=== PATIENT | male | born 1965 | race Caucasian/White ===

== ENCOUNTER 2016-05-15 09:44 | Inpatient (IN) | payer MEDICARE ==
[~2016-05-15] VITALS: Ht 167.6 cm; Wt 75.5 kg
[~2016-05-15 09:44] MED LIST: DIVA500T2 PO; FLUP1TAB PO; HYDR10TA4 PO; LEVO50TA5 PO; OLAN5TAB9 PO; RIVA10TA PO; depakote; zyprexa
[2016-05-15] MEDS ORDERED: SODIUM CHLORIDE FLUSH 10ML SYR IVF ONE (10:00)
[2016-05-15] MEDS ORDERED: CEFAZOLIN 1,000 MG IM ONE (10:00)
[2016-05-15] MEDS ORDERED: SODIUM CHLORIDE 0.9% 1,000ML IVBOLUS ONE (10:00)
[2016-05-15] MEDS ORDERED: DIPH,PERTUSS(ACELL),TET VAC/PF 0.5 ML IM-VACC ONE ×2 (10:00→11:19)
[2016-05-15] MEDS ORDERED: QUETIAPINE 200 MG TABLET PO ONE (10:14)
[2016-05-15] MEDS ORDERED: RIVAROXABAN 20 MG TABLET PO ONE (10:14)
[2016-05-15 10:49] LABS: ASPARTATE AMINO TRANSFERASE 27 U/L (15-37); BLOOD UREA NITROGEN 15 mg/dL (7-18)
[2016-05-15] MEDS ORDERED: CEFAZOLIN PMX 1GM/50ML 50 ML ONE (11:19)
[2016-05-15] MEDS ORDERED: MORPHINE SULFATE 4 MG/ML, 1ML IVPush PRN (13:00)
[2016-05-15] MEDS ORDERED: DOCUSATE 100 MG CAPSULE PO PRN (13:00)
[2016-05-15] MEDS ORDERED: ACETAMINOPHEN 325 MG TABLET PO PRN (13:00)
[2016-05-15] MEDS ORDERED: ONDANSETRON 2MG/ML, 2ML IVP PRN (13:00)
[2016-05-15] MEDS ORDERED: ZIPRASIDONE 20 MG INJ IM PRN (13:00)
[2016-05-15] MEDS ORDERED: GUAIFENESIN/DM 200-20MG, 10ML UDC PO PRN (13:00)
[2016-05-15] MEDS: RIVAROXABAN 10 MG TABLET PO SCH (13:00)
[2016-05-15 14:03] VITALS: BP 149/96
[2016-05-15] MEDS: ZIPRASIDONE 20 MG INJ IM PRN ×2 (18:05→23:13)
[2016-05-15] MEDS: CEFAZOLIN PMX 1GM/50ML 50 ML IV SCH (19:30)
[2016-05-15] MEDS: OLANZAPINE 10 MG TABLET PO SCH (20:09)
[2016-05-15] MEDS: FAMOTIDINE 20 MG TABLET PO SCH (20:10)
[2016-05-15] MEDS: DIVALPROEX 500 MG TABLET.DR PO SCH (20:10)
[2016-05-15 20:15] VITALS: BP 131/84
[2016-05-16] MEDS: ZIPRASIDONE 20 MG INJ IM PRN ×2 (00:30→10:45)
[2016-05-16] MEDS ORDERED: LORazepam 2 MG/ML, 1ML IVPush PRN (01:30)
[2016-05-16 06:34] LABS: BLOOD UREA NITROGEN 11 mg/dL (7-18)
[2016-05-16] MEDS: CEFAZOLIN PMX 1GM/50ML 50 ML IV SCH (06:34)
[2016-05-16] MEDS: FAMOTIDINE 20 MG TABLET PO SCH ×2 (10:43→21:14)
[2016-05-16] MEDS: RIVAROXABAN 10 MG TABLET PO SCH (10:43)
[2016-05-16] MEDS: DIVALPROEX 500 MG TABLET.DR PO SCH ×2 (10:43→21:14)
[2016-05-16 12:00] VITALS: BP 140/93
[2016-05-16] MEDS ORDERED: LORazepam 2 MG/ML, 1ML IM PRN (13:00)
[2016-05-16] MEDS ORDERED: ONDANSETRON ODT 4 MG PO PRN (13:00)
[2016-05-16 18:45] VITALS: BP 135/82
[2016-05-16] MEDS: CEPHALEXIN 500 MG CAPSULE PO SCH (21:14)
[2016-05-16] MEDS: OLANZAPINE 10 MG TABLET PO SCH (21:19)
[2016-05-16] MEDS: HYDROcodone/APAP 5/325 TABLET PO PRN (21:19)
[2016-05-16] MEDS: LORazepam 1MG TABLET PO PRN (22:10)
[2016-05-17 00:50] VITALS: BP 138/96
[2016-05-17 05:28] LABS: BLOOD UREA NITROGEN 13 mg/dL (7-18)
[2016-05-17 08:15] VITALS: BP 144/96
[2016-05-17] MEDS: RIVAROXABAN 10 MG TABLET PO SCH (09:28)
[2016-05-17] MEDS: CEPHALEXIN 500 MG CAPSULE PO SCH ×2 (09:28→22:34)
[2016-05-17] MEDS: FAMOTIDINE 20 MG TABLET PO SCH ×2 (09:28→22:34)
[2016-05-17] MEDS: DIVALPROEX 500 MG TABLET.DR PO SCH ×2 (09:28→22:34)
[2016-05-17 13:29] VITALS: BP 135/90
[2016-05-17 16:14] LABS: ACETAMINOPHEN < 2 mcg/mL (10-30)
[2016-05-17 17:07] LABS: DAU SCREEN DISCLAIMER
[2016-05-17 17:26] LABS: PATH.CAST-FLAG NOT PRESENT; SPERM-FLAG NOT PRESENT; SRC-FLAG NOT PRESENT; XTAL-FLAG NOT PRESENT; YLC-FLAG NOT PRESENT
[2016-05-17 19:58] VITALS: BP 148/85
[2016-05-17] MEDS: OLANZAPINE 10 MG TABLET PO SCH (22:34)
[2016-05-18 01:40] VITALS: BP 128/80
[2016-05-18 08:03] VITALS: BP 151/87
[2016-05-18] MEDS: DIVALPROEX 500 MG TABLET.DR PO SCH ×2 (08:25→21:42)
[2016-05-18] MEDS: RIVAROXABAN 10 MG TABLET PO SCH (08:25)
[2016-05-18] MEDS: CEPHALEXIN 500 MG CAPSULE PO SCH ×2 (08:26→21:43)
[2016-05-18] MEDS: LORazepam 1MG TABLET PO PRN (08:26)
[2016-05-18] MEDS: FAMOTIDINE 20 MG TABLET PO SCH ×2 (08:26→21:43)
[2016-05-18] MEDS: HYDROcodone/APAP 5/325 TABLET PO PRN (08:26)
[2016-05-18 14:00] VITALS: BP 144/81
[2016-05-18 19:00] VITALS: BP 133/85
[2016-05-18] MEDS: OLANZAPINE 10 MG TABLET PO SCH (21:43)
[2016-05-19 01:48] VITALS: BP 118/81
[2016-05-19 07:19] VITALS: BP 140/83
[2016-05-19] MEDS: RIVAROXABAN 10 MG TABLET PO SCH (08:38)
[2016-05-19] MEDS: CEPHALEXIN 500 MG CAPSULE PO SCH ×2 (08:38→21:11)
[2016-05-19] MEDS: DIVALPROEX 500 MG TABLET.DR PO SCH ×2 (08:38→21:11)
[2016-05-19] MEDS: FAMOTIDINE 20 MG TABLET PO SCH ×2 (08:38→21:11)
[2016-05-19] MEDS: SULFAMETH./TRIMETHOPRIM DS 800MG/160MG TABLET PO SCH ×2 (09:40→21:11)
[2016-05-19] MEDS: LORazepam 1MG TABLET PO PRN (12:14)
[2016-05-19 14:30] VITALS: BP 143/98
[2016-05-19 19:06] VITALS: BP 130/98
[2016-05-19] MEDS: OLANZAPINE 10 MG TABLET PO SCH (21:11)
[2016-05-20 03:05] VITALS: BP 117/75
[2016-05-20 06:42] VITALS: BP 128/72
[2016-05-20] MEDS: LORazepam 1MG TABLET PO PRN (08:40)
[2016-05-20] MEDS: SULFAMETH./TRIMETHOPRIM DS 800MG/160MG TABLET PO SCH ×2 (08:40→21:13)
[2016-05-20] MEDS: FAMOTIDINE 20 MG TABLET PO SCH ×2 (08:40→21:13)
[2016-05-20] MEDS: RIVAROXABAN 10 MG TABLET PO SCH (08:40)
[2016-05-20] MEDS: CEPHALEXIN 500 MG CAPSULE PO SCH ×2 (08:41→21:13)
[2016-05-20] MEDS: DIVALPROEX 500 MG TABLET.DR PO SCH ×2 (08:41→21:13)
[2016-05-20 12:40] VITALS: BP 127/86
[2016-05-20 18:39] VITALS: BP 117/79
[2016-05-20] MEDS: OLANZAPINE 10 MG TABLET PO SCH (21:13)
[2016-05-21 01:59] VITALS: BP 135/85
[2016-05-21 08:15] VITALS: BP 142/98
[2016-05-21] MEDS: SULFAMETH./TRIMETHOPRIM DS 800MG/160MG TABLET PO SCH (09:52)
[2016-05-21] MEDS: DIVALPROEX 500 MG TABLET.DR PO SCH (09:52)
[2016-05-21] MEDS: CEPHALEXIN 500 MG CAPSULE PO SCH (09:52)
[2016-05-21] MEDS: FAMOTIDINE 20 MG TABLET PO SCH (09:52)
[2016-05-21] MEDS: RIVAROXABAN 10 MG TABLET PO SCH (09:52)
[2016-05-21] MEDS: LORazepam 1MG TABLET PO PRN (09:52)
[2016-05-21 15:12] VITALS: BP 125/85
[2016-05-21] MEDS ORDERED: SULF1TAB24 PO (18:50)
[2016-05-21] MEDS ORDERED: RIVA20TA PO (18:50)
[2016-05-21] MEDS ORDERED: CEPH-376 PO (18:51)
== END 2016-05-21 19:16 | DRG 300 ==
LOC: ED 11:09 → EDIP 11:35 → 4NOR 13:56 → 4WST 05-16 08:00
PROVIDERS: ADMIT Hospitalist
PROC: 0T9B70Z Drainage of Bladder with Drainage Device, Via Natural or Artificial Opening (ICD-10-PCS; principal; 2016-05-15)
DX: I82.401 Acute embolism and thrombosis of unspecified deep veins of right lower extremity (principal); L03.115 Cellulitis of right lower limb; E44.0 Moderate protein-calorie malnutrition; I82.511 Chronic embolism and thrombosis of right femoral vein; F15.90 Other stimulant use, unspecified, uncomplicated; F25.9 Schizoaffective disorder, unspecified; F31.9 Bipolar disorder, unspecified; F41.9 Anxiety disorder, unspecified; F10.20 Alcohol dependence, uncomplicated; I82.501 Chronic embolism and thrombosis of unspecified deep veins of right lower extremity; B95.61 Methicillin susceptible Staphylococcus aureus infection as the cause of diseases classified elsewhere; Z59.0 Homelessness; Z91.19 Patient's noncompliance with other medical treatment and regimen
CPT/HCPCS: 36415; 80048; 80053; 80307; 80329; 81001; 82040; 83605; 84145; 85025; 85610; 87040; 87070; 87077; 87147; 87186; 87205; 90471; 90715; 96360; 96372; 99285; J0690; J3486; G0480; J2060; J7030

== ENCOUNTER 2016-06-15 21:43 | Emergency (ER) | payer MEDICARE ==
[~2016-06-15] VITALS: Ht 167.6 cm; Wt 77.2 kg
[~2016-06-15 21:43] MED LIST changes: +CEPH-376 PO; +RIVA20TA PO; +SULF1TAB24 PO
[2016-06-15 21:51] VITALS: BP 129/83
[2016-06-16] MEDS ORDERED: SULFAMETH./TRIMETHOPRIM DS 800MG/160MG TABLET PO ONE
[2016-06-16] MEDS ORDERED: CEFTRIAXONE 1,000 MG IM ONE
[2016-06-16] MEDS ORDERED: BACITRACIN OINT 500U/GM, 15 GM TP SCH
[2016-06-16] MEDS ORDERED: CEFTRIAXONE 1,000 MG ONE (00:10)
[2016-06-16] MEDS ORDERED: SULFAMETH./TRIMETHOPRIM DS 800MG/160MG TABLET ONE (00:10)
== END 2016-06-16 00:31 | disposition home or self-care (01) ==
LOC: ED 23:59
DX: L03.115 Cellulitis of right lower limb (principal); I82.401 Acute embolism and thrombosis of unspecified deep veins of right lower extremity
CPT/HCPCS: 96372; 99283; J0696

== ENCOUNTER 2016-06-29 13:46 | Emergency (ER) | payer MEDICARE ==
[~2016-06-29] VITALS: Ht 167.6 cm; Wt 79.1 kg
[2016-06-29 13:57] VITALS: BP 152/93
[2016-06-29 15:38] LABS: BLOOD UREA NITROGEN 21 mg/dL (7-18)
== END 2016-06-29 16:29 | disposition home or self-care (01) ==
LOC: ED 16:15
DX: I82.431 Acute embolism and thrombosis of right popliteal vein (principal); I82.411 Acute embolism and thrombosis of right femoral vein; F20.9 Schizophrenia, unspecified; F10.20 Alcohol dependence, uncomplicated; I87.2 Venous insufficiency (chronic) (peripheral); M79.89 Other specified soft tissue disorders; Z86.718 Personal history of other venous thrombosis and embolism
CPT/HCPCS: 36415; 80048; 82040; 85025; 85610; 85730

== ENCOUNTER 2016-08-11 08:53 | Inpatient (IN) | payer MEDICARE ==
[~2016-08-11] VITALS: Ht 167.6 cm; Wt 81.5 kg
[2016-08-11] MEDS ORDERED: SODIUM CHLORIDE 0.9% 1,000 ML IV ONE (09:39)
[2016-08-11] MEDS ORDERED: SODIUM CHLORIDE FLUSH 10ML SYR IVF ONE (10:00)
[2016-08-11] MEDS ORDERED: CEFTRIAXONE PMX 1GM/50ML 50 ML IVPB ONE (10:00)
[2016-08-11 10:49] LABS: ASPARTATE AMINO TRANSFERASE 45 U/L (15-37); BLOOD UREA NITROGEN 37 mg/dL (7-18)
[2016-08-11] MEDS ORDERED: CEFTRIAXONE PMX 1GM/50ML 50 ML ONE (10:52)
[2016-08-11] MEDS ORDERED: SODIUM CHLORIDE FLUSH 10ML SYR IVF PRN (11:30)
[2016-08-11] MEDS ORDERED: HALOPERIDOL 5 MG TABLET PO PRN (13:00)
[2016-08-11] MEDS ORDERED: ONDANSETRON 2MG/ML, 2ML IVPush PRN (13:00)
[2016-08-11] MEDS ORDERED: LORazepam 2 MG/ML, 1ML IVPush PRN (13:00)
[2016-08-11] MEDS ORDERED: ACETAMINOPHEN 325 MG TABLET PO PRN (13:00)
[2016-08-11] MEDS ORDERED: GUAIFENESIN/DM 200-20MG, 10ML UDC PO PRN (13:00)
[2016-08-11] MEDS: NICOTINE 21 MG/24 HR PATCH.TD24 TD SCH (14:00)
[2016-08-11] MEDS: CEFTAROLINE 600 MG in SODIUM CHLORIDE 0.9% 100 ML IV SCH (14:13)
[2016-08-11] MEDS: SODIUM CHLORIDE 0.9% 1,000 ML IV SCH ×2 (14:13→23:29)
[2016-08-11 15:43] VITALS: BP 122/72
[2016-08-11] MEDS: RIVAROXABAN 20 MG TABLET PO SCH (17:42)
[2016-08-11 19:11] VITALS: BP 118/73
[2016-08-11] MEDS: FAMOTIDINE 20 MG TABLET PO SCH (20:47)
[2016-08-11] MEDS: DIVALPROEX 500 MG TABLET.DR PO SCH (20:47)
[2016-08-11] MEDS: OLANZAPINE 5 MG TABLET PO SCH (20:48)
[2016-08-12 00:50] VITALS: BP 134/82
[2016-08-12] MEDS: CEFTAROLINE 600 MG in SODIUM CHLORIDE 0.9% 100 ML IV SCH ×2 (01:57→14:14)
[2016-08-12 05:29] LABS: BLOOD UREA NITROGEN 21 mg/dL (7-18)
[2016-08-12 07:47] VITALS: BP 126/79
[2016-08-12] MEDS ORDERED: POTASSIUM CHLORIDE 20 MEQ TAB.ER.PRT PO ONE (08:30)
[2016-08-12] MEDS: DIVALPROEX 500 MG TABLET.DR PO SCH ×2 (09:23→21:23)
[2016-08-12] MEDS: FAMOTIDINE 20 MG TABLET PO SCH ×2 (09:23→21:23)
[2016-08-12] MEDS: SODIUM CHLORIDE 0.9% 1,000 ML IV SCH ×2 (11:03→18:58)
[2016-08-12] MEDS: NICOTINE 21 MG/24 HR PATCH.TD24 TD SCH (14:14)
[2016-08-12 14:29] VITALS: BP 123/75
[2016-08-12] MEDS: RIVAROXABAN 20 MG TABLET PO SCH (17:42)
[2016-08-12 19:44] VITALS: BP 135/82
[2016-08-12] MEDS: OLANZAPINE 5 MG TABLET PO SCH (21:23)
[2016-08-13 02:00] VITALS: BP 105/66
[2016-08-13] MEDS: CEFTAROLINE 600 MG in SODIUM CHLORIDE 0.9% 100 ML IV SCH ×2 (02:00→14:11)
[2016-08-13] MEDS: SODIUM CHLORIDE 0.9% 1,000 ML IV SCH (02:00)
[2016-08-13 05:32] LABS: BLOOD UREA NITROGEN 16 mg/dL (7-18)
[2016-08-13 07:32] VITALS: BP 151/82
[2016-08-13] MEDS: DIVALPROEX 500 MG TABLET.DR PO SCH ×2 (09:00→21:34)
[2016-08-13] MEDS: FAMOTIDINE 20 MG TABLET PO SCH ×2 (09:00→21:34)
[2016-08-13 12:35] VITALS: BP 137/92
[2016-08-13] MEDS: NICOTINE 21 MG/24 HR PATCH.TD24 TD SCH (14:11)
[2016-08-13] MEDS: RIVAROXABAN 20 MG TABLET PO SCH (18:20)
[2016-08-13 19:29] VITALS: BP 153/89
[2016-08-13] MEDS: OLANZAPINE 5 MG TABLET PO SCH (21:34)
[2016-08-14] MEDS: CEFTAROLINE 600 MG in SODIUM CHLORIDE 0.9% 100 ML IV SCH ×2 (01:43→14:02)
[2016-08-14 03:51] VITALS: BP 135/82
[2016-08-14 05:48] LABS: BLOOD UREA NITROGEN 11 mg/dL (7-18)
[2016-08-14 06:50] VITALS: BP 144/89
[2016-08-14] MEDS: FAMOTIDINE 20 MG TABLET PO SCH ×2 (09:02→20:50)
[2016-08-14] MEDS: DIVALPROEX 500 MG TABLET.DR PO SCH ×2 (09:02→20:50)
[2016-08-14] MEDS: NICOTINE 21 MG/24 HR PATCH.TD24 TD SCH (14:02)
[2016-08-14 14:08] VITALS: BP 129/84
[2016-08-14] MEDS: RIVAROXABAN 20 MG TABLET PO SCH (17:34)
[2016-08-14 19:08] VITALS: BP 149/94
[2016-08-14] MEDS: OLANZAPINE 5 MG TABLET PO SCH ×2 (20:49→21:00)
[2016-08-14] MEDS: DOCUSATE 100 MG CAPSULE PO SCH (20:50)
[2016-08-14] MEDS: OLANZAPINE 10 MG TABLET PO SCH (22:59)
[2016-08-15 01:38] VITALS: BP 154/84
[2016-08-15] MEDS: CEFTAROLINE 600 MG in SODIUM CHLORIDE 0.9% 100 ML IV SCH ×2 (01:48→13:42)
[2016-08-15] MEDS: DIVALPROEX 500 MG TABLET.DR PO SCH ×2 (07:46→20:46)
[2016-08-15] MEDS: DOCUSATE 100 MG CAPSULE PO SCH ×2 (07:47→20:46)
[2016-08-15] MEDS: FAMOTIDINE 20 MG TABLET PO SCH ×2 (07:47→20:46)
[2016-08-15 07:51] VITALS: BP 114/71
[2016-08-15 12:49] VITALS: BP 117/71
[2016-08-15] MEDS: NICOTINE 21 MG/24 HR PATCH.TD24 TD SCH (13:43)
[2016-08-15] MEDS: RIVAROXABAN 20 MG TABLET PO SCH (17:30)
[2016-08-15 19:56] VITALS: BP 140/77
[2016-08-15] MEDS: OLANZAPINE 10 MG TABLET PO SCH (20:46)
[2016-08-16] MEDS: CEFTAROLINE 600 MG in SODIUM CHLORIDE 0.9% 100 ML IV SCH ×2 (02:29→16:00)
[2016-08-16 03:30] VITALS: BP 114/76
[2016-08-16] MEDS: DOCUSATE 100 MG CAPSULE PO SCH ×2 (10:36→21:27)
[2016-08-16] MEDS: DIVALPROEX 500 MG TABLET.DR PO SCH ×2 (10:36→21:27)
[2016-08-16] MEDS: FAMOTIDINE 20 MG TABLET PO SCH ×2 (10:36→21:27)
[2016-08-16 15:05] VITALS: BP 117/76
[2016-08-16] MEDS: NICOTINE 21 MG/24 HR PATCH.TD24 TD SCH (16:00)
[2016-08-16] MEDS: RIVAROXABAN 20 MG TABLET PO SCH (18:53)
[2016-08-16 19:26] VITALS: BP 131/81
[2016-08-16] MEDS: OLANZAPINE 10 MG TABLET PO SCH (21:28)
[2016-08-17 03:50] VITALS: BP 102/65
[2016-08-17] MEDS: CEFTAROLINE 600 MG in SODIUM CHLORIDE 0.9% 100 ML IV SCH (04:03)
[2016-08-17 06:45] VITALS: BP 130/84
[2016-08-17] MEDS: DIVALPROEX 500 MG TABLET.DR PO SCH ×2 (08:47→20:28)
[2016-08-17] MEDS: DOCUSATE 100 MG CAPSULE PO SCH ×2 (08:48→20:30)
[2016-08-17] MEDS: FAMOTIDINE 20 MG TABLET PO SCH ×2 (08:48→20:28)
[2016-08-17] MEDS: CEPHALEXIN 500 MG CAPSULE PO SCH ×2 (10:17→16:41)
[2016-08-17 13:13] VITALS: BP 120/77
[2016-08-17] MEDS: NICOTINE 21 MG/24 HR PATCH.TD24 TD SCH (14:34)
[2016-08-17] MEDS: RIVAROXABAN 20 MG TABLET PO SCH (16:41)
[2016-08-17 18:25] VITALS: BP 134/89
[2016-08-17] MEDS: OLANZAPINE 10 MG TABLET PO SCH (20:27)
[2016-08-18] MEDS: CEPHALEXIN 500 MG CAPSULE PO SCH ×2 (01:30→10:05)
[2016-08-18 02:10] VITALS: BP 104/72
[2016-08-18 07:59] VITALS: BP 113/72
[2016-08-18] MEDS ORDERED: CEPH-376 PO (09:14)
[2016-08-18] MEDS: DOCUSATE 100 MG CAPSULE PO SCH (10:05)
[2016-08-18] MEDS: FAMOTIDINE 20 MG TABLET PO SCH (10:05)
[2016-08-18] MEDS: DIVALPROEX 500 MG TABLET.DR PO SCH (10:05)
== END 2016-08-18 13:30 | disposition home or self-care (01) | DRG 872 ==
LOC: ED 11:08 → EDIP 11:14 → 3NE 11:58
PROVIDERS: ADMIT Internal Medicine; ATTEND Internal Medicine
DX: A41.9 Sepsis, unspecified organism (principal); L03.115 Cellulitis of right lower limb; E86.0 Dehydration; E87.6 Hypokalemia; F17.210 Nicotine dependence, cigarettes, uncomplicated; F25.0 Schizoaffective disorder, bipolar type; F91.9 Conduct disorder, unspecified; I87.2 Venous insufficiency (chronic) (peripheral); K59.00 Constipation, unspecified; Z59.0 Homelessness; Z65.3 Problems related to other legal circumstances; Z79.01 Long term (current) use of anticoagulants; Z79.899 Other long term (current) drug therapy; Z91.19 Patient's noncompliance with other medical treatment and regimen
CPT/HCPCS: 36415; 80048; 80053; 83036; 83605; 83880; 84145; 84443; 85025; 85610; 85651; 85730; 86140; 87040; 87070; 87077; 87147; 87186; 87205; 96361; 96365; J0696; J0712; J2060; J7030

== ENCOUNTER 2016-10-03 01:59 | Emergency (ER) | payer MEDICARE ==
[~2016-10-03 01:59] MED LIST changes: +DIAZ2TAB PO; +LEVO25TA4 PO; +LITH150C PO; +WARF2TAB PO
== END 2016-10-03 03:27 ==
LOC: ED 02:03
DX: M79.604 Pain in right leg (principal); Z53.21 Procedure and treatment not carried out due to patient leaving prior to being seen by health care provider

== ENCOUNTER 2016-10-04 12:32 | Emergency (ER) | payer MEDICARE ==
[~2016-10-04] VITALS: Ht 167.6 cm; Wt 73.4 kg
[2016-10-04 12:34] VITALS: BP 113/72
== END 2016-10-04 13:24 | disposition left against medical advice (07) ==
LOC: ED 13:18
DX: Z53.21 Procedure and treatment not carried out due to patient leaving prior to being seen by health care provider (principal)

== ENCOUNTER 2016-10-05 07:01 | Emergency (ER) | payer MEDICARE ==
[~2016-10-05] VITALS: Ht 170.2 cm; Wt 73.5 kg
[2016-10-05 07:04] VITALS: BP 108/82
== END 2016-10-05 07:23 ==
LOC: ED 07:17
DX: M79.604 Pain in right leg (principal); Z53.21 Procedure and treatment not carried out due to patient leaving prior to being seen by health care provider

== ENCOUNTER 2016-10-09 15:59 | Emergency (ER) | payer OTHER, MEDICARE ==
[~2016-10-09] VITALS: Ht 167.6 cm; Wt 80.0 kg
[2016-10-09] MEDS ORDERED: SODIUM CHLORIDE FLUSH 10ML SYR IVF ONE (17:00)
[2016-10-09] MEDS ORDERED: PHARMACOKINETIC CONSULTATION MC ONE (17:00)
[2016-10-09] MEDS ORDERED: SODIUM CHLORIDE 0.9% 1,000ML IVBOLUS ONE (17:00)
[2016-10-09] MEDS ORDERED: VANCOMYCIN 1,600 MG in SODIUM CHLORIDE 0.9% 250 ML IV ONE (17:00)
[2016-10-09] MEDS ORDERED: VANCOMYCIN PER PHARMACY MC ONE (17:00)
[2016-10-09] MEDS ORDERED: ACETAMINOPHEN 500 MG TABLET PO ONE (17:00)
[2016-10-09 17:27] LABS: HEMATOCRIT 35.7 % (39.2-51.8); HEMOGLOBIN 11.5 g/dL (13.7-18.0); WHITE BLOOD COUNT 7.4 x10^3/uL (3.4-10)
[2016-10-09 17:41] LABS: BLOOD UREA NITROGEN 12 mg/dL (7-18)
[2016-10-09 17:45] LABS: ASPARTATE AMINO TRANSFERASE 39 U/L (15-37)
[2016-10-09] MEDS ORDERED: ACETAMINOPHEN 500 MG TABLET ONE (18:27)
[2016-10-09 20:00] VITALS: BP 132/87
== END 2016-10-09 20:05 | disposition home or self-care (01) ==
LOC: ED 16:14
DX: I82.411 Acute embolism and thrombosis of right femoral vein (principal); F20.9 Schizophrenia, unspecified; Z86.718 Personal history of other venous thrombosis and embolism
CPT/HCPCS: 36415; 73590; 80053; 83605; 84145; 85025; 87040; 96365; 96366; 99285; J3370; J7030; J7050

== ENCOUNTER 2017-07-27 09:21 | Emergency (ER) | payer MEDICAID, MEDICARE, OTHER ==
[~2017-07-27] VITALS: Ht 167.6 cm; Wt 74.5 kg
[2017-07-27 09:21] VITALS: BP 136/88
[2017-07-27] MEDS ORDERED: zyprexa (09:35)
[2017-07-27] MEDS ORDERED: haldol (09:35)
[2017-07-27] MEDS ORDERED: seroquel (09:35)
[2017-07-27] MEDS ORDERED: OLAN10TA3 PO (09:41)
[2017-07-27] MEDS ORDERED: OLAN20TA3 PO (09:41)
[2017-07-27] MEDS ORDERED: LITH300C PO (09:41)
[2017-07-27] MEDS ORDERED: HALOPERIDOL 5 MG/ML ONE (09:44)
[2017-07-27] MEDS ORDERED: HALOPERIDOL 5 MG/ML IM ONE (10:30)
== END 2017-07-27 10:36 | disposition home or self-care (01) ==
LOC: ED 10:30
DX: F25.9 Schizoaffective disorder, unspecified (principal); E03.9 Hypothyroidism, unspecified; F31.9 Bipolar disorder, unspecified
CPT/HCPCS: 96372; 99283; J1630

== ENCOUNTER 2017-08-01 13:55 | Emergency (ER) | payer MEDICAID ==
[~2017-08-01] VITALS: Ht 165.1 cm; Wt 68.0 kg
[~2017-08-01 13:55] MED LIST changes: +LITH300C PO; +OLAN10TA3 PO; +OLAN20TA3 PO; +haldol; +seroquel
[2017-08-01 14:30] VITALS: BP 150/95
== END 2017-08-01 17:44 | disposition left against medical advice (07) ==
LOC: ED 17:38
DX: R51 Headache (principal); Z76.0 Encounter for issue of repeat prescription
CPT/HCPCS: 99281

== ENCOUNTER 2018-04-16 01:29 | Emergency (ER) | payer MEDICARE, MEDICAID ==
[~2018-04-16] VITALS: Ht 167.6 cm; Wt 80.0 kg
[~2018-04-16 01:29] MED LIST changes: +APIX5TAB PO; +ARIP15TA3 PO; +DIVA-59 PO; +DIVA-61 PO; +OLAN10TA9 PO; +POLY17PO5 PO; -RIVA10TA PO; +RIVA10TA2 PO
[2018-04-16 01:41] VITALS: BP 150/89
--- NOTE | 2018-04-16 02:01 | NUR ---
PT BEGAN SCREAMING AT MD. PER MD ITS OK TO DISCHARGE PT. SECURITY ESCORTED PT OUT OF ER.
== END 2018-04-16 02:06 | disposition home or self-care (01) ==
LOC: ED 02:00
DX: M79.662 Pain in left lower leg (principal); E03.9 Hypothyroidism, unspecified; F31.9 Bipolar disorder, unspecified; F20.9 Schizophrenia, unspecified; F17.200 Nicotine dependence, unspecified, uncomplicated; Z72.9 Problem related to lifestyle, unspecified; Z91.14 Patient's other noncompliance with medication regimen
CPT/HCPCS: 99283

== ENCOUNTER 2018-04-25 14:03 | Emergency (ER) | payer MEDICARE, MEDICAID ==
[~2018-04-25] VITALS: Ht 167.6 cm; Wt 78.8 kg
[2018-04-25 15:17] LABS: BASOPHILS # (AUTO) 0.03 x10^3/uL (0-0.1); BASOPHILS % (AUTO) 1 % (0-1); EOSINOPHILS # (AUTO) 0.09 x10^3/uL (0-0.4); EOSINOPHILS % (AUTO) 2 % (1-7); LYMPHOCYTES # (AUTO) 1.05 x10^3/uL (1-3.4); LYMPHOCYTES % (AUTO) 18 % (22-44); MD NO; MEAN CORPUSCULAR HEMOGLOBIN 30.5 pg (27.5-34.5); MEAN CORPUSCULAR HGB CONC 33.4 g/dL (33.2-36.2); MEAN CORPUSCULAR VOLUME 91.1 fL (81-97); MEAN PLATELET VOLUME 8.8 fL (7.4-10.4); MONOCYTES # (AUTO) 0.67 x10^3/uL (0.2-0.8); MONOCYTES % (AUTO) 12 % (2-9); NEUTROPHILS # (AUTO) 3.95 x10^3/uL (1.8-6.8); NEUTROPHILS % (AUTO) 68 % (42-75); PLATELET COUNT 243 x10^3/uL (130-400); RED BLOOD COUNT 4.12 x10^6/uL (4.38-5.82); RED CELL DISTRIBUTION WIDTH 16.4 % (9.4-14.8)
[2018-04-25 15:27] LABS: ANION GAP 7 mmol/L (5-15); CALCIUM 8.8 mg/dL (8.5-10.1); CHLORIDE 106 mmol/L (98-107); CREATININE 0.99 mg/dL (0.7-1.3)
--- NOTE | 2018-04-25 16:56 | NUR ---
TO ROOM 01
--- NOTE | 2018-04-25 17:30 | NUR ---
LATE ENTRY - PT RESTING ON EMETERIO, ALL CONCERNS ADRESSED. CHANTELN. WAITING ON US RESULTS AT THIS TIME.
--- NOTE | 2018-04-25 18:26 | NUR ---
Patient/Caregiver given discharge instructions and they have confirmed that they understand the instructions. Patient ambulatory with steady gait. PT LEFT WITH ALL PERSONAL BELONGINGS.
[2018-04-25 18:28] VITALS: BP 148/86
== END 2018-04-25 18:55 | disposition home or self-care (01) ==
LOC: ED 17:45
DX: I82.531 Chronic embolism and thrombosis of right popliteal vein (principal); I82.511 Chronic embolism and thrombosis of right femoral vein; F20.9 Schizophrenia, unspecified; F31.9 Bipolar disorder, unspecified; F17.200 Nicotine dependence, unspecified, uncomplicated
CPT/HCPCS: 36415; 80048; 85025; 99284

== ENCOUNTER 2018-12-20 12:13 | Emergency (ER) | payer MEDICARE, MEDICAID ==
[~2018-12-20] VITALS: Ht 167.6 cm; Wt 75.0 kg
--- NOTE | 2018-12-20 12:20 | NUR ---
PATIENT BROUGHT IN BY [facility] WITH AFTER [facility] CALLED EMS DUE TO PATIENT FOUND TO HAVE LEFT LOWER LEG POSSIBLE INFECTION. PER REPORT FROM EMS THE PATIENT IS IN CURRENT BASELINE PSYCH STATE, WITH ADMITTED NONCOMPLIANCE OF PSYCH MEDICATIONS AND POSSIBLE DRUG USE HISTORY. LEFT LOWER LEG APPEARS TO BE RED AND SWOLLEN. THE PATIENT IS ALERT AND COOPERATIVE.
[2018-12-20 12:23] VITALS: BP 115/83
--- NOTE | 2018-12-20 13:07 | NUR ---
ULTRASOUND AT BEDSIDE
--- NOTE | 2018-12-20 13:50 | NUR ---
ERMD AT BEDSIDE TO REVIEW POC. DISCHARGE INSTRUCTIONS REVIEWED.
== END 2018-12-20 14:15 | disposition home or self-care (01) ==
LOC: ED 13:58
DX: I82.511 Chronic embolism and thrombosis of right femoral vein (principal); F25.9 Schizoaffective disorder, unspecified; Z72.9 Problem related to lifestyle, unspecified; E03.9 Hypothyroidism, unspecified; F31.9 Bipolar disorder, unspecified
CPT/HCPCS: 99284

== ENCOUNTER 2019-03-19 23:08 | Emergency (ER) | payer MEDICAID, MEDICARE ==
[~2019-03-19] VITALS: Ht 167.6 cm; Wt 77.7 kg
--- NOTE | 2019-03-20 00:36 | NUR ---
PT TO US AT THIS TIME
[2019-03-20 00:40] LABS: BASOPHILS # (AUTO) 0.05 x10^3/uL (0-0.1); BASOPHILS % (AUTO) 1 % (0-1); EOSINOPHILS # (AUTO) 0.02 x10^3/uL (0-0.4); EOSINOPHILS % (AUTO) 0 % (1-7); LYMPHOCYTES # (AUTO) 1.37 x10^3/uL (1-3.4); LYMPHOCYTES % (AUTO) 16 % (22-44); MD NO; MEAN CORPUSCULAR HEMOGLOBIN 28.8 pg (27.5-34.5); MEAN CORPUSCULAR HGB CONC 32.8 g/dL (33.2-36.2); MEAN CORPUSCULAR VOLUME 87.8 fL (81-97); MEAN PLATELET VOLUME 10.5 fL (7.4-10.4); MONOCYTES % (AUTO) 13 % (2-9); NEUTROPHILS # (AUTO) 5.98 x10^3/uL (1.8-6.8); NEUTROPHILS % (AUTO) 70 % (42-75); PLATELET COUNT 147 x10^3/uL (130-400); RED BLOOD COUNT 4.26 x10^6/uL (4.38-5.82)
[2019-03-20 00:49] LABS: INTERNATIONAL NORMALIZED RATIO 1.02 (0.93-1.1); PROTHROMBIN TIME 10.8 Seconds (9.6-11.5)
[2019-03-20 00:50] LABS: ALANINE AMINOTRANSFERASE 18 U/L (12-78); ALBUMIN 3.4 g/dL (3.4-5.0); ANION GAP 4 mmol/L (5-15); CALCIUM 8.5 mg/dL (8.5-10.1); CHLORIDE 109 mmol/L (98-107); CREATININE 1.06 mg/dL (0.7-1.3)
[2019-03-20 00:52] LABS: ALKALINE PHOSPHATASE 70 U/L (45-117); BILIRUBIN,TOTAL 0.5 mg/dL (0.2-1.0); TOTAL PROTEIN 7.2 g/dL (6.4-8.2)
--- NOTE | 2019-03-20 00:54 | NUR ---
Elvira RN: Pt in US via john.
--- NOTE | 2019-03-20 01:06 | NUR ---
Break RN: Pt returned from US. Requesting food and something to drink. Pt aware we have to wait for test results. ERP to be updated to pt's requests. Call light in reach.
[2019-03-20 01:10] VITALS: BP 106/70
--- NOTE | 2019-03-20 01:45 | NUR ---
PT CALL LIGHT ON PT DEMANDING FOOD, AND RN TO MAKE HIS SHOES "PERFECT" AND STS "BEND DOWN AND PICK THEM UP YOURE BEING DISRESPECFUL BITCH." PT INFORMED THIS IS NOT APPROPRIATE WAY TO SPEAK TO STAFF. PT DEMANDING CRACKERS BEGAN SCREAMING "GET ME SOME FUCKING FOOD YOU PEOPLE ARE CONNING ME OUT OF ANOTHER MILLION DOLLARS." PT AGAIN REMINDED NOT TO SHOUT AT STAFF. PT CONTINUES TO SHOUT AT RN, RN LEAVING ROOM PT SHOUTS "YOU FUCKING BITCH GET SOME SOME FOOD, YOU KNOW WHAT I'M LEAVING BITCH." SECURITY TO BEDSIDE FOR SAFETY OF STAFF AND PT.
== END 2019-03-20 02:15 | disposition home or self-care (01) ==
LOC: ED 03-20 00:26
DX: I82.411 Acute embolism and thrombosis of right femoral vein (principal); I82.431 Acute embolism and thrombosis of right popliteal vein; E03.9 Hypothyroidism, unspecified
CPT/HCPCS: 36415; 80053; 85025; 85610; 85730; 99284

== ENCOUNTER 2019-03-24 04:15 | Emergency (ER) | payer MEDICARE ==
[~2019-03-24] VITALS: Ht 167.6 cm; Wt 75.0 kg
--- NOTE | 2019-03-24 04:29 | NUR ---
PT BIB EMS WITH C/O RIGHT LEG WOUND X1 DAY, PT HAS CELLULITIS WITH ULCER ON LEG. PT DENIES OTHER C/O AT THIS TIME. REPORTS LAST METH USE X2 DAYS AGO. PT DENIES SI/HI, STATES "I JUST SAID THAT TO GET HERE". PT PLACED ON MONITORING, CALL LIGHT WITHIN REACH, ALL SAFETY MEASURES IN PLACE.
--- NOTE | 2019-03-24 04:57 | NUR ---
PT ASKED AGAIN IF HAVING ANY SI/HI AND HE DENIES THIS.
[2019-03-24 05:40] LABS: INTERNATIONAL NORMALIZED RATIO 0.97 (0.93-1.1); PROTHROMBIN TIME 10.3 Seconds (9.6-11.5)
[2019-03-24 05:42] LABS: ALBUMIN 2.9 g/dL (3.4-5.0); ANION GAP 8 mmol/L (5-15); CALCIUM 8.4 mg/dL (8.5-10.1); CHLORIDE 108 mmol/L (98-107); CREATININE 0.84 mg/dL (0.7-1.3)
[2019-03-24 05:45] VITALS: BP 99/73
[2019-03-24 05:45] LABS: BASOPHILS # (AUTO) 0.07 x10^3/uL (0-0.1); BASOPHILS % (AUTO) 1 % (0-1); EOSINOPHILS # (AUTO) 0.19 x10^3/uL (0-0.4); EOSINOPHILS % (AUTO) 3 % (1-7); LYMPHOCYTES # (AUTO) 1.53 x10^3/uL (1-3.4); LYMPHOCYTES % (AUTO) 26 % (22-44); MD NO; MEAN CORPUSCULAR HEMOGLOBIN 29.4 pg (27.5-34.5); MEAN CORPUSCULAR HGB CONC 33.4 g/dL (33.2-36.2); MEAN CORPUSCULAR VOLUME 87.9 fL (81-97); MEAN PLATELET VOLUME 9.3 fL (7.4-10.4); MONOCYTES # (AUTO) 0.65 x10^3/uL (0.2-0.8); MONOCYTES % (AUTO) 11 % (2-9); NEUTROPHILS % (AUTO) 59 % (42-75); PLATELET COUNT 188 x10^3/uL (130-400); RED BLOOD COUNT 4.01 x10^6/uL (4.38-5.82); RED CELL DISTRIBUTION WIDTH 15.9 % (9.4-14.8)
--- NOTE | 2019-03-24 06:07 | NUR ---
PT RESTING WITH EYES CLOSED. MONITOR IN PLACE.
[2019-03-24] MEDS ORDERED: APIXABAN 5 MG TABLET ONE (06:13)
[2019-03-24] MEDS ORDERED: APIXABAN 5 MG TABLET PO ONE (06:30)
== END 2019-03-24 06:33 | disposition home or self-care (01) ==
LOC: ED 05:15
DX: I82.511 Chronic embolism and thrombosis of right femoral vein (principal); I82.532 Chronic embolism and thrombosis of left popliteal vein; Z59.0 Homelessness
CPT/HCPCS: 36415; 80048; 82040; 85025; 85610; 99284

== ENCOUNTER 2019-03-24 22:06 | Emergency (ER) | payer MEDICARE ==
[~2019-03-24] VITALS: Ht 167.6 cm; Wt 79.1 kg
[2019-03-24 22:10] VITALS: BP 130/74
[2019-03-24] MEDS ORDERED: APIXABAN 5 MG TABLET ONE (22:53)
[2019-03-24] MEDS ORDERED: APIXABAN 5 MG TABLET PO ONE (23:00)
== END 2019-03-24 23:16 | disposition home or self-care (01) ==
LOC: ED 23:00
DX: I82.411 Acute embolism and thrombosis of right femoral vein (principal); I82.431 Acute embolism and thrombosis of right popliteal vein; F15.10 Other stimulant abuse, uncomplicated; F17.200 Nicotine dependence, unspecified, uncomplicated; Z72.9 Problem related to lifestyle, unspecified; Z91.14 Patient's other noncompliance with medication regimen; Z95.0 Presence of cardiac pacemaker
CPT/HCPCS: 99283

== ENCOUNTER 2019-06-14 09:35 | Emergency (ER) | payer MEDICARE ==
[~2019-06-14] VITALS: Ht 167.6 cm; Wt 75.0 kg
[~2019-06-14 09:35] MED LIST changes: -FLUP1TAB PO; +FLUP1TAB3 PO; +HYDR-2995 PO; -HYDR10TA4 PO
[2019-06-14 11:34] VITALS: BP 129/79
--- NOTE | 2019-06-14 15:17 | NUR ---
INSURANCE APPRAISER: PT LEFT RX AND D/C PAPERWORK. CALLED NUMBER IN COMPUTER. WRONG NUMBER.
== END 2019-06-14 11:59 | disposition home or self-care (01) ==
LOC: ED 10:33
DX: I82.531 Chronic embolism and thrombosis of right popliteal vein (principal); L03.115 Cellulitis of right lower limb; Z72.9 Problem related to lifestyle, unspecified; F17.200 Nicotine dependence, unspecified, uncomplicated; E03.9 Hypothyroidism, unspecified
CPT/HCPCS: 99283

== ENCOUNTER 2019-06-16 01:28 | Emergency (ER) | payer MEDICARE ==
[~2019-06-16] VITALS: Ht 167.6 cm; Wt 76.4 kg
[2019-06-16 01:32] VITALS: BP 126/79
== END 2019-06-16 01:51 | disposition home or self-care (01) ==
LOC: ED 01:30
DX: G89.29 Other chronic pain (principal); M79.661 Pain in right lower leg; L98.9 Disorder of the skin and subcutaneous tissue, unspecified; F17.200 Nicotine dependence, unspecified, uncomplicated; Z86.718 Personal history of other venous thrombosis and embolism; Z86.39 Personal history of other endocrine, nutritional and metabolic disease; Z72.9 Problem related to lifestyle, unspecified
CPT/HCPCS: 99283

== ENCOUNTER 2019-06-18 03:15 | Emergency (ER) | payer MEDICARE ==
--- NOTE | 2019-06-18 03:22 | NUR ---
PT CALLED FOR TRIAGE, STATES HERE TO HAVE HIS R LEG CHECKED AGAIN, WAS SEEN HERE ON THE 06/15, 06/13 FOR SAME WELL MULTIPLE OTHER VISITS, ASKED WHAT IS DIFFERENT TONIGHT, PT THROWS STICKER AND WRIST BAND AT THIS NURSE AND YELLS AND THREATENS THIS NURSE WALKS OUT DOOR AMBULATORY WITH STEADY GAIT, NAD.
== END 2019-06-18 03:32 | disposition left against medical advice (07) ==
LOC: ED 03:20
DX: M79.604 Pain in right leg (principal); Z53.21 Procedure and treatment not carried out due to patient leaving prior to being seen by health care provider

== ENCOUNTER 2019-06-22 12:52 | Emergency (ER) | payer MEDICARE ==
[~2019-06-22] VITALS: Ht 167.6 cm; Wt 74.0 kg
[2019-06-22 13:00] VITALS: BP 110/80
--- NOTE | 2019-06-22 13:47 | NUR ---
WITH ASSESSMENT PATIENT ADMITS "I ACTUALLY DONT HAVE A COUGH OR SORE THROAT." I ACTUALLY WANT APPLE JUICE. WITH FURTHER ASSESSMENT RIGHT LOWER LEG CELLULITUS PROVIDER TO BEDSIDE WOUND CLEANSED WITH STERILE SALINE. THEN REDRESSED WITH ADAPTIC/BACTRACIN DRESSING
--- NOTE | 2019-06-22 14:13 | NUR ---
PATIENT GIVEN DISCHARGE INSTRUCTIONS AND FOLLOW UP PLAN. PT VERBALIZES UNDERSTANDING, BUT THEN STARTS TO RANT ABOUT OTHER ISSUES. PT AMBULATED OUT OF ED PER PEDIS WITH A STRONG STEADY GAIT.
== END 2019-06-22 14:14 | disposition home or self-care (01) ==
LOC: ED 13:32
DX: L03.115 Cellulitis of right lower limb (principal); G89.29 Other chronic pain; M79.661 Pain in right lower leg; E03.9 Hypothyroidism, unspecified; F17.200 Nicotine dependence, unspecified, uncomplicated; Z86.718 Personal history of other venous thrombosis and embolism
CPT/HCPCS: 99282

== ENCOUNTER 2020-01-14 14:15 | Emergency (ER) | payer MEDICARE ==
[~2020-01-14] VITALS: Ht 167.6 cm; Wt 76.9 kg
[2020-01-14 14:25] VITALS: BP 151/101
[2020-01-14] MEDS ORDERED: ZIPRASIDONE 20 MG INJ IM ONE ×2 (14:30)
--- NOTE | 2020-01-14 14:44 | NUR ---
pt medicated as ordered on eMAR. Report to TAIWO Villasenor. pt's belongings removed per protocol. bookkeeping clerks supervisor Helmi made aware of need for sitter for pt.
[2020-01-14] MEDS ORDERED: PLEASE ENTER HEIGHT AND WEIGHT MC SCH (15:00)
--- NOTE | 2020-01-14 15:06 | NUR ---
SITTER AT BEDSIDE. PT BELONGINGS, 1 BAG, PLACED IN ED LOCKER. PT ATTEMPTED TO PROVIDE URINE SAMPLE WITHOUT SUCCESS.
[2020-01-14 15:10] LABS: BASOPHILS % (AUTO) 0 % (0-1); EOSINOPHILS % (AUTO) 1 % (1-7); LYMPHOCYTES % (AUTO) 10 % (22-44); MEAN CORPUSCULAR HEMOGLOBIN 30.7 pg (27.5-34.5); MEAN CORPUSCULAR HGB CONC 33.7 g/dL (33.2-36.2); MONOCYTES % (AUTO) 12 % (2-9); NEUTROPHILS % (AUTO) 77 % (42-75); PLATELET COUNT 156 x10^3/uL (130-400); RED BLOOD COUNT 4.37 x10^6/uL (4.38-5.82); RED CELL DISTRIBUTION WIDTH 13.9 % (9.4-14.8)
[2020-01-14 15:11] LABS: MD NO
[2020-01-14 15:20] LABS: ALANINE AMINOTRANSFERASE 20 U/L (12-78); ALBUMIN 4.3 g/dL (3.4-5.0); ANION GAP 7 mmol/L (5-15); CALCIUM 8.8 mg/dL (8.5-10.1); CHLORIDE 107 mmol/L (98-107); CREATININE 0.93 mg/dL (0.7-1.3); SALICYLATE LEVEL 1.7 mg/dL (2.8-20.0)
[2020-01-14 15:21] LABS: ALKALINE PHOSPHATASE 70 U/L (45-117); BILIRUBIN,TOTAL 0.9 mg/dL (0.2-1.0); TOTAL PROTEIN 8.3 g/dL (6.4-8.2)
== END 2020-01-14 16:22 | disposition home or self-care (01) ==
LOC: ED 15:45
DX: F15.10 Other stimulant abuse, uncomplicated (principal); R45.1 Restlessness and agitation; F41.9 Anxiety disorder, unspecified; E03.9 Hypothyroidism, unspecified; Z86.718 Personal history of other venous thrombosis and embolism
CPT/HCPCS: 36415; 80053; 80307; 85025; 99283; J3486

== ENCOUNTER 2020-03-09 00:53 | Emergency (ER) | payer MEDICARE ==
[~2020-03-09] VITALS: Ht 167.6 cm; Wt 78.0 kg
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
[2020-03-09] MEDS ORDERED: OLANZAPINE 10 MG TABLET PO ONE (01:30)
[2020-03-09] MEDS ORDERED: OLANZAPINE 10 MG TABLET ONE (01:41)
[2020-03-09 01:59] VITALS: BP 123/81
--- NOTE | 2020-03-09 02:00 | NUR ---
PT REFUSED ZYPREXA, PT STATES "ILL FALL ASLEEP BEFORE I GET WHERE I AM GOING TO SLEEP, I CANT TAKE THAT" PT REPEATEDLY ASKING RN, "DO YOU KNOW WHERE [facility]? [facility]". PT NAD, TOLD TO WAIT FOR DC PAPERS, WCTM.
--- NOTE | 2020-03-09 02:16 | NUR ---
Patient given discharge instructions and they have confirmed that they understand the instructions. Patient ambulatory with steady gait. CALLED MOM PER REQUEST, PT PROVIDED TAXI VOUCHER, DENIES ADDITIONAL NEEDS, ALL QUESTIONS ANSWERED APPROPRIATELY. NAD, NO PERSONAL BELONGINGS LEFT IN ROOM AFTER DC.
== END 2020-03-09 02:17 | disposition home or self-care (01) ==
LOC: ED 02:15
DX: F20.9 Schizophrenia, unspecified (principal); F41.9 Anxiety disorder, unspecified; E03.9 Hypothyroidism, unspecified; Z86.718 Personal history of other venous thrombosis and embolism
CPT/HCPCS: 99281; 99284

== ENCOUNTER 2020-07-15 21:03 | Emergency (ER) | payer MEDICARE ==
[~2020-07-15] VITALS: Ht 157.5 cm; Wt 65.0 kg
[~2020-07-15 21:03] MED LIST changes: +SULF-23 PO; -SULF1TAB24 PO
--- NOTE | 2020-07-15 21:17 | NUR ---
PT AMBULATED TO ROOM 2, WAS BIB [facility] AFTER PT STATED HE HAD SI AND SA. PT 7 DAYS AGO, SCRATCHED HIS WRIST IN AN ATTEMPT TO COMMITT SUICIDE. PT AT THIS TIME, HAS A RAMBLING OF WORDS AND PLACED IN ROOM 2, AND PLACED IN GOWN, AND ALL PROPERTY AND CLOTHING PLACED IN BAG AND SECURED IN LOCKED BOX LABELED WITH PT LABELS AND ROOM NUMBER.
[2020-07-15 21:22] VITALS: BP 114/68
--- NOTE | 2020-07-15 21:56 | NUR ---
MD TO BEDSIDE TO ANAYELI PT.
--- NOTE | 2020-07-15 22:35 | NUR ---
F/U AND D/C INSTRUCTIONS GIVEN TO PT AND HE V/U. PT AMBULATORY AND IN NON ACUTE DISTRESS. PT STATES HE'S HAPPY TO GET HOME, AND AMBULATED OUT.
== END 2020-07-15 22:44 ==
LOC: ED 22:42
DX: F15.10 Other stimulant abuse, uncomplicated (principal); R45.851 Suicidal ideations; Z72.9 Problem related to lifestyle, unspecified; R00.0 Tachycardia, unspecified; E03.9 Hypothyroidism, unspecified; Z86.39 Personal history of other endocrine, nutritional and metabolic disease; F17.200 Nicotine dependence, unspecified, uncomplicated
CPT/HCPCS: 99283

== ENCOUNTER 2020-07-30 07:28 | Emergency (ER) | payer MEDICARE ==
[~2020-07-30] VITALS: Ht 167.6 cm; Wt 78.0 kg
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
[2020-07-30 07:59] LABS: BASOPHILS % (AUTO) 1 % (0-1); EOSINOPHILS % (AUTO) 1 % (1-7); LYMPHOCYTES % (AUTO) 16 % (22-44); MEAN CORPUSCULAR HEMOGLOBIN 31.2 pg (27.5-34.5); MEAN CORPUSCULAR HGB CONC 33.8 g/dL (33.2-36.2); MEAN PLATELET VOLUME 9.6 fL (7.4-10.4); MONOCYTES % (AUTO) 10 % (2-9); NEUTROPHILS % (AUTO) 73 % (42-75); PLATELET COUNT 154 x10^3/uL (130-400); RED CELL DISTRIBUTION WIDTH 13.9 % (9.4-14.8)
[2020-07-30 08:01] LABS: MD NO
[2020-07-30 08:08] LABS: ANION GAP 8 mmol/L (5-15); CALCIUM 8.7 mg/dL (8.5-10.1); CHLORIDE 108 mmol/L (98-107); CREATININE 0.84 mg/dL (0.7-1.3); INTERNATIONAL NORMALIZED RATIO 1.09 (0.93-1.1); PROTHROMBIN TIME 11.6 Seconds (9.6-11.5)
[2020-07-30 08:51] VITALS: BP 111/76
--- NOTE | 2020-07-30 08:52 | NUR ---
PATIENT ELOPED WITH ALL BELONGINGS.
== END 2020-07-30 08:53 | disposition left against medical advice (07) ==
LOC: ED 07:41
DX: I82.511 Chronic embolism and thrombosis of right femoral vein (principal); I82.531 Chronic embolism and thrombosis of right popliteal vein; M79.661 Pain in right lower leg; F15.10 Other stimulant abuse, uncomplicated; Z72.9 Problem related to lifestyle, unspecified; Z86.718 Personal history of other venous thrombosis and embolism
CPT/HCPCS: 36415; 80048; 82040; 85025; 85610; 99284

== ENCOUNTER 2020-08-02 19:25 | Emergency (ER) | payer MEDICARE ==
[~2020-08-02] VITALS: Ht 167.6 cm; Wt 77.4 kg
[2020-08-02 19:31] VITALS: BP 123/96
== END 2020-08-02 21:06 | disposition home or self-care (01) ==
LOC: ED 20:39
DX: M79.671 Pain in right foot (principal); M79.672 Pain in left foot; Z72.9 Problem related to lifestyle, unspecified; Z86.718 Personal history of other venous thrombosis and embolism
CPT/HCPCS: 99281

== ENCOUNTER 2020-08-08 11:19 | Emergency (ER) | payer MEDICARE ==
--- NOTE | 2020-08-08 11:28 | NUR ---
PT BIB EMS FOR LOWER BILAT LEG PAIN. EMS STATES NO INTERVENTIONS, VS STABLE.
--- NOTE | 2020-08-08 12:30 | NUR ---
2ND CALL FOR PT TO TRIAGE. PT DID NOT RESPOND TO CALLS.
--- NOTE | 2020-08-08 13:01 | NUR ---
NIL X 3. PRE SALES TECHNICAL ENGINEER CALLED IN RESTROOMS AND ALL CORNERS OF TRIAGE. ALSO CHECK TO SEE IF HE WAS IN LAB OR IMAGING
== END 2020-08-08 13:04 | disposition left against medical advice (07) ==
LOC: ED 12:58
DX: M79.605 Pain in left leg (principal); M79.604 Pain in right leg; Z53.21 Procedure and treatment not carried out due to patient leaving prior to being seen by health care provider